=== PATIENT | male | born 1980 | race Caucasian/White ===

== ENCOUNTER → 2016-06-27 | Outpatient (CLI) | payer OTHER ==
[~2016-06-27] MED LIST: /MOXI40TA OR; CIPR25SS PO; HYDR10EL PO; PERC5TAB8 OR; TRAZ50TA2 PO; TUSSSUS5 OR; VENTAER IN; ZOLO50TA PO
[2016-06-27 16:27] LABS: ANION GAP 7 MEQ/L (8-16); BLOOD UREA NITROGEN 14 MG/DL (7-18); CALCIUM LEVEL 8.7 MG/DL (8.5-10.1); CARBON DIOXIDE LEVEL 28 MEQ/L (21-32); CHLORIDE LEVEL 109 MEQ/L (98-107); CREATININE FOR GFR 1.24 MG/DL (0.70-1.30); GLOMERULAR FILTRATION RATE > 60.0 (>60); GLUCOSE, FASTING 92 MG/DL (70-105); POTASSIUM SERUM 4.5 MEQ/L (3.5-5.1); SODIUM LEVEL 144 MEQ/L (136-145)
== END ==
LOC: M LAB 15:42
PROVIDERS: ATTEND Physician Assistant
DX: F32.9 Major depressive disorder, single episode, unspecified (principal)

== ENCOUNTER → 2016-09-22 | Outpatient (CLI) | payer OTHER ==
--- NOTE | 2016-09-23 02:28 | REP ---
Clinical: Pain. Technique: AP, lateral, bilateral oblique and sunrise views right knee . Findings: The osseous structures and joint spaces are intact and normal. There is no evidence for acute fracture or dislocation. No joint effusion is appreciated. Surrounding soft tissues are unremarkable. No subcutaneous emphysema or radiodense foreign body. Impression: Normal age appropriate examination. No acute fracture or dislocation. Signed by Wes Lazo MD 09/23/2016 02:20 A
== END ==
LOC: M RAD 18:26
PROVIDERS: ATTEND Psychiatry & Neurology Neurology
DX: M25.561 Pain in right knee (principal)

== ENCOUNTER 2016-10-14 15:01 | Outpatient (RCR) | payer OTHER | END 2016-10-15 | LOC: M PT 15:01 | PROVIDERS: ATTEND Psychiatry & Neurology Neurology | DX: Z51.89 Encounter for other specified aftercare (principal); R26.9 Unspecified abnormalities of gait and mobility ==

== ENCOUNTER 2016-10-26 15:15 | Outpatient (RCR) | payer OTHER | END 2016-11-15 | disposition home or self-care (01) | LOC: M PT 15:15 | PROVIDERS: ATTEND Psychiatry & Neurology Neurology | DX: Z51.89 Encounter for other specified aftercare (principal); R26.9 Unspecified abnormalities of gait and mobility ==

== ENCOUNTER 2017-03-20 16:50 | Emergency (ER) | payer OTHER ==
[2017-03-20] MEDS ORDERED: NORCO, ANEXSIA 5/325MG TABLET (HYDROcodone/ACETAMINOPHEN) PO ONE (17:15)
--- NOTE | 2017-03-20 18:30 | REPUSA ---
HISTORY: LEFT FOOT PAIN, TRAUMA, PAIN, SWELLING, AND ECCHYMOSIS. TECHNIQUE: 4 views. FINDINGS: Intramedullary dave is noted in the tibia and old fracture deformities noted in the middle t hirds of the tibia and fibula. No acute fracture or joint space abnormalities seen in the left ankle. There is prominent soft tissu e swelling over the lateral malleolus. IMPRESSION: Soft tissue swelling over the lateral malleolus, with no acute fracture or ankle instabil ity seen.
--- NOTE | 2017-03-20 18:40 | REPUSA ---
HISTORY: LEFT FOOT PAIN, TRAUMA, PAIN, SWELLING, AND ECCHYMOSIS. TECHNIQUE: 4 views. FINDINGS: There is no evidence of fracture, destructive bony lesion, or joint space instability. Soft tissues are normal. IMPRESSION: Negative left foot examination. .
--- NOTE | 2017-03-20 18:40 | REPUSA ---
HISTORY: LEFT FOOT PAIN, TRAUMA, PAIN, SWELLING, AND ECCHYMOSIS. TECHNIQUE: 2 views. FINDINGS: Intramedullary dave is noted in the tibia. Old fracture deformities are seen in the middle third of the tibia and middle third of the fibula. No acute fracture or dislocation is seen. IMPRESSION: Stable postsurgical hardware and old fracture deformities as discussed above with no acut e fracture or dislocation seen. Clinical correlation and followup imaging may be warranted as clinically indicated.
[2017-03-20] MEDS ORDERED: NORCOTAB PO (18:52)
[2017-03-20] MEDS ORDERED: NORCO 5/325MG TABLET (BULK FOR ED) PO ONE (19:00)
[2017-03-20 19:21] VITALS: BP 134/76
== END 2017-03-20 19:35 | disposition home or self-care (01) ==
LOC: M ED 16:50 → EDBD 16:50 → M ED 19:35
DX: S93.492A Sprain of other ligament of left ankle, initial encounter (principal); X50.1XXA Overexertion from prolonged static or awkward postures, initial encounter; Y92.9 Unspecified place or not applicable; Y93.89 Activity, other specified; Y99.9 Unspecified external cause status; F41.9 Anxiety disorder, unspecified; F32.9 Major depressive disorder, single episode, unspecified; F17.200 Nicotine dependence, unspecified, uncomplicated

== ENCOUNTER 2017-03-22 16:26 | Emergency (ER) | payer OTHER ==
[~2017-03-22 16:26] MED LIST changes: +NORCOTAB PO
[2017-03-22] MEDS ORDERED: PERCOCET 5MG/325MG TAB PO ONE (18:30)
--- NOTE | 2017-03-22 19:30 | REP ---
LEFT ANKLE, FOUR VIEWS: HISTORY: Pain. COMPARISON: 03/20/2017 An intramedullary dave is present in the tibia. There is no acute fracture or dislocation. The joint space is normal in appearance. Soft tissue swelling is present over the lateral malleolus. There is a possible ankle joint effusion. IMPRESSION: 1. There is no acute fracture or dislocation. 2. There is a possible joint effusion. Signed by Srikanth Lake MD 03/22/2017 07:41 P
[2017-03-22] MEDS ORDERED: KETOROLAC 60 MG/2 ML VIAL (J1885) IM ONE (20:00)
[2017-03-22 20:13] VITALS: BP 173/91
[2017-03-22] MEDS ORDERED: ACET30TAB PO (20:16)
[2017-03-22] MEDS ORDERED: NAPR500T3 PO (20:16)
== END 2017-03-22 20:32 | disposition home or self-care (01) ==
LOC: M ED 16:26
DX: S93.402A Sprain of unspecified ligament of left ankle, initial encounter (principal); X58.XXXA Exposure to other specified factors, initial encounter; Y92.9 Unspecified place or not applicable; Y93.9 Activity, unspecified; Y99.9 Unspecified external cause status; M79.9 Soft tissue disorder, unspecified; F41.9 Anxiety disorder, unspecified; F32.9 Major depressive disorder, single episode, unspecified; R45.851 Suicidal ideations; Z73.89 Other problems related to life management difficulty
CPT/HCPCS: 73610; 96372; 99284; J1885

== ENCOUNTER 2017-06-17 22:04 | Emergency (ER) | payer OTHER ==
[2017-06-17] MEDS: KETOROLAC 60 MG/2 ML VIAL (J1885) IM (22:40)
== END 2017-06-17 23:27 | disposition home or self-care (01) ==
LOC: M ED 22:04
DX: M54.2 Cervicalgia (principal); F41.9 Anxiety disorder, unspecified; F90.9 Attention-deficit hyperactivity disorder, unspecified type; Z91.030 Bee allergy status; F17.210 Nicotine dependence, cigarettes, uncomplicated
CPT/HCPCS: J1885

== ENCOUNTER 2017-10-03 13:08 | Emergency (ER) | payer OTHER | END 2017-10-03 18:55 | disposition home or self-care (01) | LOC: M ED 13:08 | DX: M50.322 Other cervical disc degeneration at C5-C6 level (principal); M50.323 Other cervical disc degeneration at C6-C7 level; M51.26 Other intervertebral disc displacement, lumbar region; R27.0 Ataxia, unspecified; F90.9 Attention-deficit hyperactivity disorder, unspecified type; F41.9 Anxiety disorder, unspecified; F17.200 Nicotine dependence, unspecified, uncomplicated; Z91.030 Bee allergy status; Z86.69 Personal history of other diseases of the nervous system and sense organs; Z98.890 Other specified postprocedural states | CPT/HCPCS: 72128 ==

== ENCOUNTER → 2018-05-30 | Outpatient (REF) | payer OTHER ==
[~2018-05-30] MED LIST changes: +ACET30TAB PO; +CYCL5TAB PO; +KETO10TAB PO; +NAPR-885 PO
[2018-05-30 11:58] LABS: BASO % 0.3 % (0.0-1.0); EOS # 0.1 10^3/uL (0.0-0.50); EOS % 0.7 % (0.0-3.0); HEMATOCRIT 48.1 % (42.0-52.0); HEMOGLOBIN 16.2 g/dl (13.5-17.5); LYMPH # 1.4 10^3/uL (1.5-4.5); LYMPH % 16.2 % (24.0-44.0); MEAN CORPUSCULAR HEMOGLOBIN 30.5 pg (27.0-33.0); MEAN CORPUSCULAR HGB CONC 33.7 g/dl (32.0-36.5); MEAN CORPUSCULAR VOLUME 90.6 fl (80.0-96.0); MONO # 0.7 10^3/uL (0.0-0.8); MONO % 8.2 % (0.0-5.0); NEUTROPHILS # 6.6 10^3/uL (1.8-7.7); NEUTROPHILS % 74.1 % (36.0-66.0); PLATELET COUNT, AUTOMATED 317 10^3/uL (150-450); RED BLOOD COUNT 5.31 10^6/uL (4.30-6.10); WHITE BLOOD COUNT 8.9 10^3/uL (4.0-10.0)
[2018-05-30 12:06] LABS: APPEARANCE, URINE CLEAR (CLEAR); BACTERIA, URINE AUTO NEGATIVE (NEGATIVE); BILIRUBIN, URINE AUTO NEGATIVE (NEGATIVE); BLOOD, URINE BLOOD NEGATIVE (NEGATIVE); COLOR, URINE YELLOW (YELLOW); GLUCOSE, URINE (UA) AUTO NEGATIVE (NEGATIVE); KETONE, URINE AUTO NEGATIVE (NEGATIVE); LEUKOCYTE ESTERASE, URINE AUTO NEGATIVE (NEGATIVE); MUCUS, URINE SMALL (NEGATIVE); NITRITE, URINE AUTO NEGATIVE (NEGATIVE); PROTEIN, URINE AUTO NEGATIVE (NEGATIVE); RBC, URINE AUTO 1 /HPF (0-3); SPECIFIC GRAVITY URINE AUTO 1.011 (1.002-1.035); SQUAMOUS EPITHELIAL CELL UR AU 0 /HPF (0-6); UROBILINOGEN, URINE AUTO 0.2 mg/dL (0.0-2.0); WBC, URINE AUTO 0 /HPF (0-3)
[2018-05-30 12:22] LABS: BLOOD UREA NITROGEN 17 MG/DL (7-18); C REACTIVE PROTEIN QUANTITATIV 0.65 MG/DL (0.00-0.30); CALCIUM LEVEL 9.3 MG/DL (8.5-10.1); CARBON DIOXIDE LEVEL 28 MEQ/L (21-32); CHLORIDE LEVEL 104 MEQ/L (98-107); CREATININE FOR GFR 1.13 MG/DL (0.70-1.30); GLOMERULAR FILTRATION RATE > 60.0 (>60); GLUCOSE, FASTING 82 MG/DL (70-100); POTASSIUM SERUM 4.5 MEQ/L (3.5-5.1); SODIUM LEVEL 139 MEQ/L (136-145)
[2018-05-30 12:26] LABS: CREATININE, URINE 86.6 MG/DL; MAU/CREAT RATIO 6.9 MCG/MG (0.0-30.0)
== END ==
LOC: M SFHCPLAZ 10:01
PROVIDERS: ATTEND Family Medicine
DX: I10 Essential (primary) hypertension (principal); R09.1 Pleurisy; M54.2 Cervicalgia; R79.89 Other specified abnormal findings of blood chemistry

== ENCOUNTER → 2018-06-13 | Outpatient (CLI) | payer OTHER ==
--- NOTE | 2018-06-14 08:53 | REP ---
MR CERVICAL SPINE WITHOUT CONTRAST: HISTORY: Cervicalgia. COMPARISON: CT 10/03/2017. A disc bulge with associated osteophyte formation is present at the C5-6 level. There is minimal effacement of the thecal sac without spinal cord compression. The C5 neural foramina are patent. A disc bulge with associated osteophyte formation is present at the C6-7 level. There is minimal effacement of the thecal sac without spinal cord compression. The C6 neural foramina are patent. There is no other disc bulge or herniation. The remaining neural foramina are patent. The spinal cord is normal in signal intensity. The C5-6 and C6-7 intervertebral discs are decreased in height consistent with disc degeneration. Increased signal intensity on T2-weighted images is present in the endplates of the C5-7 vertebral bodies. This represents degenerative change. IMPRESSION: There is cervical spondylosis at the C5-6 and C6-7 levels without spinal cord compression. Electronically Signed by Srikanth Lake MD 06/14/2018 09:04 A
--- NOTE | 2018-06-14 08:57 | REP ---
MR LUMBAR SPINE WITHOUT CONTRAST: HISTORY: Lumbago. Decreased signal intensity on T2-weighted images is present in the L4-5 intervertebral disc. The disc is decreased in height. These findings are consistent with disc degeneration. There is no disc bulge or herniation at the L1-2 through L3-4 and L5-S1 levels. The nerves exit the neural foramina without compression. A diffuse disc bulge is present at the L4-5 level. There is minimal compression of the thecal sac. A small right intraforaminal disc protrusion is present. There is posterolateral displacement of the right L4 nerve distal to the neural foramen. The left L4 nerve exits the neural foramen without compression. The conus medullaris is normal in appearance terminating at the level of the T12-L1 intervertebral disc. Normal signal intensity is present in the lumbar vertebral bodies. IMPRESSION: Diffuse disc bulges at the L4-5 with minimal thecal sac compression. A small right intraforaminal disc protrusion is present. There is posterolateral displacement of the right L4 nerve distal to the neural foramen. Electronically Signed by Srikanth Lake MD 06/14/2018 09:05 A
== END ==
LOC: M RAD 16:15
PROVIDERS: ATTEND Family Medicine
DX: M54.2 Cervicalgia (principal); M54.5 Low back pain

== ENCOUNTER → 2018-06-15 | Outpatient (CLI) | payer OTHER ==
--- NOTE | 2018-06-15 13:44 | REP ---
MR BRAIN WITHOUT CONTRAST: HISTORY: Ataxia. COMPARISON: CT 12/21/2012. There are no areas of abnormal signal intensity in the brain. There is no intraparenchymal hemorrhage, infarct, mass or midline shift. The ventricular system is normal in appearance. There is no extracerebral collection. The sinuses are clear. IMPRESSION: There is no intracranial lesion. Electronically Signed by Srikanth Lake MD 06/15/2018 01:47 P
== END ==
LOC: M RAD 12:25
PROVIDERS: ATTEND Family Medicine
DX: G11.2 Late-onset cerebellar ataxia (principal); R41.3 Other amnesia

== ENCOUNTER → 2018-06-29 | Outpatient (REF) | payer OTHER ==
[2018-06-29 15:00] LABS: FREE T3 3.7 PG/ML (2.2-4.0); FREE T4 0.97 NG/DL (0.76-1.46); THYROID STIMULATING HORMONE 0.978 uIU/ML (0.358-3.740)
[2018-06-29 15:01] LABS: TOTAL 25(OH) VITAMIN D 18.6 NG/ML (30.0-100.0)
== END ==
LOC: M SFHCPLAZ 11:54
PROVIDERS: ATTEND Family Medicine
DX: R41.3 Other amnesia (principal); F41.8 Other specified anxiety disorders

== ENCOUNTER 2022-11-02 14:38 | Emergency (ER) | payer OTHER ==
[~2022-11-02] VITALS: Ht 182.9 cm; Wt 81.5 kg
[2022-11-02 14:38] VITALS: BP 143/98; TEMP 98.7; O2SAT 98
[~2022-11-02 14:38] MED LIST changes: -/MOXI40TA OR; +ACET-716 PO; -ACET30TAB PO; +AVEL1TAB2 OR; +HYDR-3715 PO; -NORCOTAB PO
== END 2022-11-02 20:23 | disposition left against medical advice (07) ==
LOC: M ED 14:38
DX: Z53.21 Procedure and treatment not carried out due to patient leaving prior to being seen by health care provider (principal)

== ENCOUNTER 2023-02-26 15:37 | Emergency (ER) | payer OTHER ==
[~2023-02-26] VITALS: Ht 182.9 cm; Wt 81.7 kg
[2023-02-26 18:11] LABS: BASO % 0.4 % (0.0-1.0); EOS % 0.5 % (0.0-3.0); HEMATOCRIT 48.4 % (42.0-52.0); HEMOGLOBIN 16.5 g/dl (13.5-17.5); LYMPH # 1.8 10^3/uL (1.5-5.0); LYMPH % 24.1 % (24.0-44.0); MEAN CORPUSCULAR HEMOGLOBIN 30.2 pg (27.0-33.0); MEAN CORPUSCULAR HGB CONC 34.1 g/dl (32.0-36.5); MEAN CORPUSCULAR VOLUME 88.6 fl (80.0-96.0); MONO # 0.5 10^3/uL (0.0-0.8); MONO % 6.6 % (2.0-8.0); NEUTROPHILS % 68.1 % (36.0-66.0); PLATELET COUNT, AUTOMATED 310 10^3/uL (150-450); RED BLOOD COUNT 5.46 10^6/uL (4.30-6.10); WHITE BLOOD COUNT 7.4 10^3/uL (4.0-10.0)
[2023-02-26 18:58] LABS: ERYTHROCYTE SEDIMENTATION RATE 4 mm/hr (0-15)
[2023-02-26 19:43] VITALS: BP 153/95; TEMP 98.5; O2SAT 98
== END 2023-02-26 19:45 | disposition home or self-care (01) ==
LOC: M ED 15:37
DX: M79.651 Pain in right thigh (principal); M50.30 Other cervical disc degeneration, unspecified cervical region; Z91.030 Bee allergy status

== ENCOUNTER 2023-03-08 04:37 | Emergency (ER) | payer OTHER ==
[~2023-03-08] VITALS: Ht 182.9 cm; Wt 83.6 kg
[2023-03-08 04:37] VITALS: BP 159/92; TEMP 96.2; O2SAT 99
[2023-03-08] MEDS ORDERED: NEOM10DR2 AD (06:20)
[2023-03-08] MEDS ORDERED: AMOX875T2 PO (06:20)
== END 2023-03-08 06:32 | disposition home or self-care (01) ==
LOC: M ED 04:37
DX: H65.01 Acute serous otitis media, right ear (principal); H60.91 Unspecified otitis externa, right ear; Z91.030 Bee allergy status; Z79.2 Long term (current) use of antibiotics; Z79.899 Other long term (current) drug therapy

== ENCOUNTER → 2023-09-14 | Outpatient (CLI) | payer OTHER ==
[~2023-09-14] MED LIST changes: +AMOX875T2 PO; +NEOM10DR2 AD
[2023-09-14 18:20] LABS: BASO % 0.3 % (0.0-1.0); EOS % 0.1 % (0.0-3.0); HEMATOCRIT 52.5 % (42.0-52.0); HEMOGLOBIN 17.4 g/dl (13.5-17.5); LYMPH # 1.5 10^3/uL (1.5-5.0); LYMPH % 13.9 % (24.0-44.0); MEAN CORPUSCULAR HEMOGLOBIN 30.4 pg (27.0-33.0); MEAN CORPUSCULAR HGB CONC 33.1 g/dl (32.0-36.5); MEAN CORPUSCULAR VOLUME 91.8 fl (80.0-96.0); MONO # 0.6 10^3/uL (0.0-0.8); MONO % 5.6 % (2.0-8.0); NEUTROPHILS # 8.3 10^3/uL (1.5-8.5); NEUTROPHILS % 79.6 % (36.0-66.0); PLATELET COUNT, AUTOMATED 355 10^3/uL (150-450); RED BLOOD COUNT 5.72 10^6/uL (4.30-6.10); WHITE BLOOD COUNT 10.5 10^3/uL (4.0-10.0)
[2023-09-14 18:56] LABS: ALBUMIN 4.4 G/DL (3.2-5.2); ALKALINE PHOSPHATASE 79 U/L (46-116); ALT/SGPT 26 U/L (7.0-40); AST/SGOT 18 U/L (<34); BILIRUBIN,TOTAL 0.3 MG/DL (0.3-1.2); BLOOD UREA NITROGEN 19 MG/DL (9-23); CALCIUM LEVEL 9.6 MG/DL (8.5-10.1); CARBON DIOXIDE LEVEL 28 MMOL/L (20-31); CHLORIDE LEVEL 109 MMOL/L (98-107); CHOLESTEROL LEVEL 177 MG/DL (<200); CHOLESTEROL RISK RATIO 3.43 (<5); CREATININE FOR GFR 1.12 MG/DL (0.70-1.30); GLOMERULAR FILTRATION RATE > 60.0 (>60); GLUCOSE, FASTING 91 MG/DL (60-100); HDL CHOLESTEROL 51.6 MG/DL (>40); LDL CHOLESTEROL 107.2 MG/DL (<100); NON-HDL-C 125.4 MG/DL; POTASSIUM SERUM 4.5 MMOL/L (3.5-5.1); SODIUM LEVEL 143 MMOL/L (136-145); TOTAL PROTEIN 7.3 G/DL (5.7-8.2); TRIGLYCERIDES LEVEL 91 MG/DL (<150)
[2023-09-14 18:58] LABS: TOTAL 25(OH) VITAMIN D 28.9 NG/ML (20.0-100.0)
== END ==
LOC: M PLALAB 14:29
PROVIDERS: ATTEND Nurse Practitioner Family
DX: Z13.220 Encounter for screening for lipoid disorders (principal); R20.0 Anesthesia of skin; E55.9 Vitamin D deficiency, unspecified

== ENCOUNTER → 2024-11-30 | Outpatient (CLI) | payer OTHER ==
[~2024-11-30] MED LIST changes: -CYCL5TAB PO; +CYCL5TAB4 PO
== END ==
LOC: M PLAIMG 11:23
PROVIDERS: ATTEND Nurse Practitioner Family
DX: R05.9 Cough, unspecified (principal)

== ENCOUNTER → 2024-12-20 | Outpatient (CLI) | payer OTHER ==
[2024-12-20 18:12] LABS: BASO # 0.0 10^3/uL (0.0-0.2); BASO % 0.4 % (0.0-1.0); EOS # 0.0 10^3/uL (0.0-0.5); EOS % 0.6 % (0.0-3.0); LYMPH # 1.6 10^3/uL (1.5-5.0); LYMPH % 22.1 % (24.0-44.0); MONO # 0.5 10^3/uL (0.0-0.8); MONO % 6.9 % (2.0-8.0); NEUTROPHILS # 4.9 10^3/uL (1.5-8.5); NEUTROPHILS % 69.6 % (36.0-66.0); PLATELET COUNT, AUTOMATED 337 10^3/uL (150-450)
[2024-12-20 18:42] LABS: ALT/SGPT 35.0 U/L (7.0-40); AST/SGOT 48.0 U/L (<34); CALCIUM LEVEL 9.7 MG/DL (8.5-10.1); CARBON DIOXIDE LEVEL 24.0 MMOL/L (20-31); CHLORIDE LEVEL 107.0 MMOL/L (98-107); CREATININE FOR GFR 1.15 MG/DL (0.70-1.30); GLOMERULAR FILTRATION RATE 80.5 (>60); POTASSIUM SERUM 4.4 MMOL/L (3.5-5.1); SODIUM LEVEL 143.0 MMOL/L (136-145)
== END ==
LOC: M PLALAB 14:37
PROVIDERS: ATTEND Nurse Practitioner Family
DX: I10 Essential (primary) hypertension (principal)

== ENCOUNTER → 2025-01-08 | Outpatient (CLI) | payer OTHER | LOC: M RAD 08:14 | PROVIDERS: ATTEND Nurse Practitioner Family | DX: I10 Essential (primary) hypertension (principal) ==

== ENCOUNTER → 2025-03-07 | Outpatient (REF) | payer OTHER ==
[2025-03-07 13:33] LABS: BASO # 0.0 10^3/uL (0.0-0.2); BASO % 0.4 % (0.0-1.0); EOS # 0.1 10^3/uL (0.0-0.5); EOS % 1.1 % (0.0-3.0); LYMPH # 1.9 10^3/uL (1.5-5.0); LYMPH % 26.2 % (24.0-44.0); MONO # 0.5 10^3/uL (0.0-0.8); MONO % 7.2 % (2.0-8.0); NEUTROPHILS # 4.6 10^3/uL (1.5-8.5); NEUTROPHILS % 64.7 % (36.0-66.0); PLATELET COUNT, AUTOMATED 280 10^3/uL (150-450)
[2025-03-07 13:40] LABS: ALT/SGPT 32.0 U/L (7.0-40); AST/SGOT 31.0 U/L (<34); CALCIUM LEVEL 9.5 MG/DL (8.5-10.1); CARBON DIOXIDE LEVEL 26.0 MMOL/L (20-31); CHLORIDE LEVEL 107.0 MMOL/L (98-107); CHOLESTEROL LEVEL 204.0 MG/DL (<200); CHOLESTEROL RISK RATIO 4.55 (<5); CREATININE FOR GFR 1.26 MG/DL (0.70-1.30); GLOMERULAR FILTRATION RATE 71.7 (>60); LDL CHOLESTEROL 140.6 MG/DL (<100); MAGNESIUM LEVEL 2.0 MG/DL (1.8-2.4); NON-HDL-C 159.2 MG/DL; POTASSIUM SERUM 4.5 MMOL/L (3.5-5.1); SODIUM LEVEL 141.0 MMOL/L (136-145); TRIGLYCERIDES LEVEL 93.0 MG/DL (<150)
[2025-03-07 13:42] LABS: FREE T4 1.23 NG/DL (0.89-1.76); TOTAL 25(OH) VITAMIN D 30.5 NG/ML (20.0-100.0)
== END ==
LOC: M SFHCPLAZ 09:32
PROVIDERS: ATTEND Nurse Practitioner Family
DX: Z00.00 Encounter for general adult medical examination without abnormal findings (principal); E78.2 Mixed hyperlipidemia; I10 Essential (primary) hypertension; E55.9 Vitamin D deficiency, unspecified